=== PATIENT | male | born 1995 | race African-American/Black ===

== ENCOUNTER 2016-10-17 19:45 | Emergency (ER) | payer OTHER ==
[~2016-10-17] VITALS: Ht 170.2 cm; Wt 69.0 kg
[2016-10-17 19:47] VITALS: BP 140/96; PULSE 67; RESP 14; TEMP 97.9; O2SAT 99
== END 2016-10-17 21:15 | disposition left against medical advice (07) ==
LOC: NED 19:45
DX: R68.89 Other general symptoms and signs (principal); Z53.21 Procedure and treatment not carried out due to patient leaving prior to being seen by health care provider
CPT/HCPCS: 99281

== ENCOUNTER 2016-10-19 08:06 | Emergency (ER) | payer OTHER ==
[~2016-10-19] VITALS: Ht 170.2 cm; Wt 68.0 kg
[2016-10-19 08:07] VITALS: BP 129/78; PULSE 48; RESP 14; TEMP 98.2; O2SAT 99
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
[2016-10-19] MEDS ORDERED: IBUP-232 PO (08:43)
[2016-10-19] MEDS ORDERED: ORPH100T99 PO (08:43)
[2016-10-19] MEDS ORDERED: EXTR500C PO (08:43)
== END 2016-10-19 09:01 | disposition home or self-care (01) ==
LOC: NEPB 08:06
DX: S29.012A Strain of muscle and tendon of back wall of thorax, initial encounter (principal); V43.52XA Car driver injured in collision with other type car in traffic accident, initial encounter; Y93.9 Activity, unspecified; Y92.9 Unspecified place or not applicable; Y99.9 Unspecified external cause status
CPT/HCPCS: 99283